=== PATIENT | female | born 2000 | race Asian ===

== ENCOUNTER 2024-12-19 15:34 | Outpatient (CLI) | payer MEDICAID ==
--- NOTE | 2024-12-19 18:43 | RADIOLOGY REPORT ---
OB ULTRASOUND, LIMITED CLINICAL INDICATION: SUPERVISION OF HIGH RISK , UNSP, FIRST TRIMESTER TECHNIQUE: Multiple grayscale ultrasound and M-mode images were obtained of the pelvis for evaluation of intrauterine . COMPARISON: None FINDINGS: A single living fetus is seen in cephalic presentation. Biparietal diameter: 4.81 cm (20 weeks, 4 days) Head Circumference: 18.67 cm (21 weeks, 0 days) Abdomen Circumference: 16.39 cm (21 weeks, 3 days) Femur Length: 3.37 cm (20 weeks, 4 days) Estimated weight: 393.54 grams (+/- 59.03 grams). Placenta: Anterior. Amniotic fluid: Visibly normal. ELIER 13.3 cm. Three-vessel cord: Present. Cord insertion: Normal. heart rate: 150 beats/min. The ventricles, cerebral falx, posterior fossa, orbits, lips and nose, spine, 4-chamber heart, right and left ventricular outflow tracts, stomach, diaphragm, bilateral kidneys, and urinary bladder are g rossly unremarkable. There are 2 upper into lower extremities grossly unremarkable. IMPRESSION: Single living intrauterine with an estimated gestational age of 20 weeks, 6 days, corresp onding to an estimated date of delivery of 05/02/2025.
== END 2024-12-19 23:59 | disposition home or self-care (01) ==
LOC: RAD 15:34
PROVIDERS: ATTEND Student in an Organized Health Care Education/Training Program
DX: O09.92 Supervision of high risk pregnancy, unspecified, second trimester (principal); Z3A.20 20 weeks gestation of pregnancy
CPT/HCPCS: 76811